=== PATIENT | female | born 1985 | race Two or more races ===

== ENCOUNTER 2024-04-15 18:00 | Outpatient (CLI) | payer BC, OTHER, SELFPAY ==
[2024-04-15 18:46] LABS: Adenovirus,PCR Not Detected (NotDetected); Bordetella Pertussis Not Detected (NotDetected); Chlamydophila Pneumoniae, PCR Not Detected (NotDetected); Coronavirus 19, PCR Not Detected (NotDetected); Coronavirus 229E Not Detected (NotDetected); Coronavirus NL63 Not Detected (NotDetected); Coronavirus OC43 Not Detected (NotDetected); Coronovirus HKU1,PCR Not Detected (NotDetected); Human Metapneumovirus Not Detected (NotDetected); Influenza A, PCR Not Detected (NotDetected); Influenza AH1, 2009 Not Detected (NotDetected); Influenza AH1, PCR Not Detected (NotDetected); Influenza AH3,PCR Not Detected (NotDetected); Influenza B, PCR Not Detected (NotDetected); Mycoplasma Pneumoniae, PCR Not Detected (NotDetected); Parainfluenza 1, PCR Not Detected (NotDetected); Parainfluenza 2, PCR Not Detected (NotDetected); Parainfluenza 3, PCR Not Detected (NotDetected); Parainfluenza 4, PCR Not Detected (NotDetected); Respiratory Syncytial Virus Not Detected (NotDetected); Rhinovirus/Enterovirus Not Detected (NotDetected)
== END 2024-04-15 23:59 | disposition home or self-care (01) ==
LOC: LAB.DROPOF 04-16 13:49
PROVIDERS: PCP Nurse Practitioner; Visit Provider Nurse Practitioner
DX: J06.9 Acute upper respiratory infection, unspecified (principal)
CPT/HCPCS: 87581; 87632; 87635; 87798

== ENCOUNTER 2024-12-04 10:25 | Outpatient (CLI) | payer BC, SELFPAY ==
[2024-12-04 19:07] LABS: Basophils # 0.1 K/mm3 (0-0.2); Basophils % 1.2 % (0.1-2.0); Eosinophils # 0.4 K/mm3 (0.0-0.4); Eosinophils % 4.5 % (0.1-12.0); Hematocrit 42.3 % (37.0-47.0); Hemoglobin 13.6 g/dL (12.2-16.2); Lymphocytes # 2.9 K/mm3 (0.7-4.5); Lymphocytes % 31.3 % (10-50); Mean Corpuscular HGB Conc 32.2 g/dL (31.8-35.4); Mean Corpuscular Hemoglobin 27.6 pg (27.0-31.2); Mean Platelet Volume 10.2 fl (7.4-10.4); Monocytes # 0.7 K/mm3 (0.1-1.0); Monocytes % 7.7 % (1.7-9.3); Neutrophils # 5.1 K/mm3 (1.8-7.8); Platelet Count 289 K/mm3 (142-424); Red Blood Count 4.92 M/mm3 (4.20-5.40); Red Cell Distribution Width 13.6 % (11.5-17.5); White Blood Count 9.3 K/mm3 (4.8-10.8)
[2024-12-04 19:31] LABS: Alanine Aminotransferase 22 U/L (12-78); Albumin/Globulin Ratio 1.7 (1.1-1.8); Alkaline Phosphatase 67 U/L (38-126); Anion Gap 16.3 mEq/L (5-15); Aspartate Amino Transferase 28 U/L (14-36); Bilirubin,Total 0.2 mg/dl (0.2-1.3); Blood Urea Nitrogen 12 mg/dl (7-17); Calcium 9.9 mg/dl (8.4-10.2); Carbon Dioxide 22 mmol/L (22.0-30.0); Chloride 106 mmol/L (98-107); Chol/HDL Ratio 3.2 (1-3.5); Cholesterol 202 mg/dl (140-200); Estimated Glomerular Filt Rate 112 ml/min (>60); GFR (African American) 135 ML/MIN (>60); Globulin 2.9 g/dL (1.3-3.2); Glucose 103 mg/dl (74-100); HDL Cholesterol 64 mg/dl (40-60); Potassium 4.3 mmoL/L (3.5-5.1); Sodium 140 mmol/L (136-145); Total Protein,Serum 7.9 g/dl (6.3-8.2); Triglycerides 98 mg/dl (30-150); VLDL Cholesterol 20 mg/dL (0-40)
[2024-12-04 19:47] LABS: Direct LDL Cholesterol 111.94 mg/dL (100-129); Total Iron Binding Capacity 451 ug/dL (265-497)
[2024-12-04 19:50] LABS: 25-OH Vitamin D, Total 23.5 ng/mL (30-100)
[2024-12-04 19:54] LABS: T4 (Thyroxine) 7.8 ug/dl (5.53-11.0)
[2024-12-04 20:07] LABS: Thyroid Stimulating Hormone 1.35 uIU/mL (0.465-4.68)
[2024-12-04 20:49] LABS: Iron 66 ug/dL (37-170)
[2024-12-04 21:32] LABS: HIV Combo NEGATIVE (Negative)
[2024-12-04 21:39] LABS: Hepatitis C Ab Qual. W/ RFX NEGATIVE (Negative)
== END 2024-12-04 23:59 | disposition home or self-care (01) ==
LOC: LAB.DROPOF 12-05 12:31
PROVIDERS: PCP Nurse Practitioner Family; Visit Provider Nurse Practitioner Family
DX: K21.9 Gastro-esophageal reflux disease without esophagitis (principal); Z11.59 Encounter for screening for other viral diseases
CPT/HCPCS: 80053; 80061; 82306; 83540; 83550; 84436; 84443; 85025; 86803; 87389

== ENCOUNTER 2025-08-27 06:15 | Day surgery (SDC) | payer BC, SELFPAY ==
[2025-08-21 14:18] VITALS: BMI 35.3
--- NOTE | 2025-08-26 06:47 | P.HP_ITS ---
History of Present Illness *Admission Date: 08/27/25 *History of present illness: Mrs. Singh is a 40-year-old female who is here for diagnostic EGD. The patient has had GERD that began about 9 years ago (after childbirth of youngest child). She also has had bloating, nausea and dysphagia. The patient does feel as if food gets hung in the upper retrosternal region and this has worsened. She has some globus sensation and occasional nausea. She has been on pantoprazole but this has stopped working. Over the years she has tried and failed omeprazole, Nexium and Pepcid. She has never had an EGD. The examination is deemed medically necessary for diagnostic EGD. The patient has been seen, interviewed and examined prior to the procedure by both myself and the anesthesia provider. [facility] Disclaimer: The information contained in this section may have been updated after the patient was seen, as this information can be updated by other users. Medical History Arm paresthesia, right Ectopic Preeclampsia Family History Grandmother Heart attack Social History (Updated 08/27/25 @ 07:17 by Dawn Aponte CRNA) Smoking Status: Never smoker alcohol intake: never substance use type: unknown current occupational status: unemployed Travel in the last 8 weeks?: None marital status: number of children: 4 caffeine: Yes Have you lived/traveled outside [place] in past 30 days?: No Contact w/someone who lives/traveled outside [place] past 30 days?: No Exposure to someone with infectious disease in past 14 days?: No Do you have a fever (greater than 100.4 F or 38 C)?: No Have you tested positive for COVID-19?: No Exposed to someone with COVID-19 in past 14 days?: No Do you have a sore throat?: No Do you have a cough?: No Do you have any weakness?: No Are you experiencing any nausea/vomitting?: No Do you have any diarrhea?: No Are you experiencing any unusual bleeding?: No Do you have any muscle aches/pain?: No Do you have any abdominal pain?: No Are you experiencing loss of taste or smell?: No Other Medical History Have you received the Pneumonia Vaccine: No Review of Systems Review of Systems Review of systems (narrative): Negative *Cardiovascular Comments: Negative *Gastrointestinal Comments: Negative *Genitourinary Comments: Negative *Musculoskeletal Comments: Negative *Neurologic Comments: Negative Meds Home Medications and Allergies Home Medications ?Medication ?Instructions ?Recorded ?Confirmed ?Type escitalopram oxalate 10 mg tablet 10 mg PO DAILY #30 t abs 05/05/25 08/27/25 Rx (Lexapro) cholecalciferol (vitamin D3) 50 50 mcg PO DAILY #30 ca ps 06/11/25 08/27/25 Rx mcg (2,000 unit) capsule lamotrigine 25 mg tablet (Lamictal) 100 mg (4 x 25 mg) PO DAILY #120 07/21/25 08/27/25 Rx tabs New Prescriptions to Start Prescriptions: Allergies Allergy/AdvReac Type Severity Reaction Status Date / Time No Known Allergies Allergy Verified 08/27/25 07:02 Exam *Routine HEENT Exam Head: Present normocephalic Eye: Present EOMI and PERRL ENT: Present mucous membranes moist *Routine Neck Exam Neck: Present supple *Routine Respiratory Exam Respiratory: Present CTA bilaterally *Routine Cardiovascular Exam Cardiovascular: Present RRR *Routine Abdominal Exam Abdominal: Present soft and normoactive bowel sounds; Absent tenderness *Routine Rectal Exam Rectal:: deferred *Routine Genitalia Exam Genitalia:: deferred *Routine Extremities Exam Extremities: Absent cyanosis, clubbing or edema *Routine Skin Exam Skin: Present warm; Absent rash *Routine Neurological Exam Neurological: Present alert and oriented X3 Assessment and Plan *Assessment and plan (1) GERD (gastroesophageal reflux disease): Status: Acute Category: Medical Code(s): K21.9 - Gastro-esophageal reflux disease without esophagitis (2) Dysphagia: Status: Acute Category: Medical Code(s): R13.10 - Dysphagia, unspecified (3) Globus sensation: Status: Acute Category: Medical Code(s): R09.A2 - Foreign body sensation, throat (4) Nausea: Status: Acute Category: Medical Code(s): R11.0 - Nausea (5) Bloating: Status: Acute Category: Medical Code(s): R14.0 - Abdominal distension (gaseous) Plan A/P: 1. Gastroesophageal reflux with dysphagia, globus sensation, nausea and bloating is the preprocedural diagnosis. The patient will be anesthetized/sedated using MAC sedation. The patient has been seen and examined. Cardiac and lung assessment prior to the examination is stable. Proceed with planned diagnostic EGD.
--- NOTE | 2025-08-27 06:53 | HMH.PROCNOTE ---
[facility] Procedure Note Date: 08/27/25 Time: 08:00 Procedure Note:: Upper Endoscopy Procedure Report: Esophagogastroduodenoscopy with cold biopsies and TTS balloon dilation Endoscopost: Luis Mai II, MD Referring Physician: Chaz Duncan MD Date of Procedure: August 27, 2025 Equipment: Olympus GIF-1100 standard upper endoscope Sedation: MAC sedation Indications: Mrs. Singh is a 40-year-old female who is here for diagnostic EGD. She primarily describes throat tightness, globus sensation and sometimes painful swallowing. She will sometimes choke on water. She has had some chest pain and reports some epigastric abdominal pain/dyspepsia. The patient has had GERD that began about 2 years ago after the of her last child. She also has had bloating, nausea and dysphagia. The patient will occasionally have belching. The patient does feel as if food gets hung in the throat and this has worsened. She has some globus sensation and occasional nausea. She has been on pantoprazole but this has stopped working. Over the years she has tried and failed omeprazole, Nexium and Pepcid. She has never had an EGD. The examination is deemed medically necessary for diagnostic EGD. Procedure: Prior to the procedure, a history and physical exam was performed, and patient's medications and allergies were reviewed. The risks, benefits and alternatives of the sedation and procedure were discussed with the patient. All questions were answered and informed consent was obtained. The patient was brought to the procedure room. Patient identification and proposed procedure were verified by the physician and the nurse. The patient was placed in a left lateral decubitus position and the scope was passed under direct vision. Throughout the procedure, the patient's blood pressure, pulse, and oxygen saturations were monitored continuously. The upper GI endoscopy was accomplished without difficulty. The patient tolerated the procedure well. Findings: The scope was passed directly into the upper esophagus and advanced to the third portion of the duodenum. The post bulbar duodenum and duodenal bulb were normal with normal mucosa and conniventes. 2 cold biopsies were taken from the second portion of the duodenum for the disaccharidase assay. The scope was withdrawn through a normal duodenal bulb and pylorus into the stomach. There was very mild antral gastropathy. The body and fundus of the stomach were normal. Upon retroflexion there was no hiatal hernia. 2 cold biopsies were taken from the antrum. The scope was then withdrawn into the esophagus. There was no evidence of reflux esophagitis or Garcia's. There were no rings, strictures, corrugation, furrowing, webs or inlet patch. There were tertiary contractions and evidence of mild esophageal dysmotility. The entire esophagus was dilated to 60 Amharic/20 mm with a TTS hydrostatic balloon. There was some mild resistance at the cricopharyngeus/cricopharyngeal spasm. The remainder of the esophageal mucosa was normal. Impression: 1. Nonerosive GERD with mild esophageal dysmotility and mild cricopharyngeal spasm 2. Minimal antral gastropathy Plan: I will follow-up the biopsies and disaccharidase assay. We will discuss treatment options. 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 Globus sensation is a functional esophageal disorder characterized by a sensation of a lump, retained food bolus or mucus, or tightness in the throat even though swallowing can be performed normally, so it is not a true cause of swallowing difficulties, but it can become quite irritating. Occasionally persons can feel or report some very mild chest pressure or rarely chest pain. The lump in the throat sensation that characterizes globus pharyngis is often caused by inflammation of one or more parts of the throat (larynx/hypopharynx-in the lower portion of the throat) due to spasm of the cricopharyngeus (upper esophageal sphincter muscle). This inflammation occurs from increased gas pressure gradients driving gastroesophageal reflux and associated esophageal dysmotility.
[2025-08-27 07:04] VITALS: BP 102/64; PULSE 74; RESP 18; TEMP 36.6; O2SAT 95
[2025-08-27] MEDS: LACTATED RINGERS 1000ML 1,000 ML 50 ML IV (07:15)
--- NOTE | 2025-08-27 07:16 | P.PNANES_ITS ---
[facility] Disclaimer: The information contained in this section may have been updated after the patient was seen, as this information can be updated by other users. Medical History Arm paresthesia, right Ectopic Preeclampsia Family History Grandmother Heart attack Social History Smoking Status: Never smoker alcohol intake: never substance use type: unknown current occupational status: unemployed Travel in the last 8 weeks?: None marital status: number of children: 4 caffeine: Yes [facility] Anesthesia Checklist Patient Identification Patient Identification: Arm Band and Verbal (Name & ) Structural Data Admitted From: Home Planned Operative Procedure/s: EGD Consent for Planned Operative Procedure(s) Verified: Yes Verified Documents: Surgical Consent and History and Physical NPO Status Verified Time NPO: 00:00 Additional verifications Anesthesia Reactions: No Previous Colonoscopy: Yes Airway Assessment Mallampati Score:: Class II Dentition: Good Dentition Neurological Assessment Level of Consciousness: Awake, Alert and Appropriate Hx Seizures: No Numbness or tingling in extremities: No Anesthesia Plan Anesthesia Risk discussed: Yes ASA Class: II Anesthesia Type: MAC
[2025-08-27 07:43] LABS: HCG Qualitative, Serum Negative (Negative)
[2025-08-27 08:00] VITALS: BP 126/74; PULSE 83; RESP 15; TEMP 36.3; O2SAT 96
[2025-08-27 08:10] VITALS: BP 119/69; PULSE 71; RESP 16; TEMP 36.3; O2SAT 97
[2025-08-27 08:20] VITALS: BP 135/75; PULSE 97; RESP 16; TEMP 36.3; O2SAT 98
[2025-08-27 08:30] VITALS: BP 119/91; PULSE 78; RESP 18; TEMP 36.3; O2SAT 100
[2025-09-01 14:22] LABS: Interpretation Notes (.); Lactase 0 (>/= 14.0); Maltase 152.84 (>/= 110.0); Palatinase 9.27 (>/= 8.5); Reference Notes (.); Sucrase 30.42 (>/= 25.0)
== END 2025-08-27 08:45 | disposition home or self-care (01) ==
PROVIDERS: PCP Family Medicine; Visit Provider Internal Medicine Gastroenterology
PROC: 0DJ08ZZ Inspection of Upper Intestinal Tract, Via Natural or Artificial Opening Endoscopic (ICD-10-PCS; CPT 43239; principal; 2025-08-27 07:30)
DX: K21.9 Gastro-esophageal reflux disease without esophagitis (principal); K29.50 Unspecified chronic gastritis without bleeding; K22.4 Dyskinesia of esophagus; K31.89 Other diseases of stomach and duodenum
CPT/HCPCS: 43239; 43249; 82657; 84703; C1726; J2003; J2704; J7120